=== PATIENT | male | born 1960 | race Caucasian/White ===

== ENCOUNTER → 2019-12-10 10:42 | Outpatient (CLI) | payer OTHER, SELFPAY ==
--- NOTE | ~2019-12-10 | XR_ITS ---
EXAMINATION: XR knee RT min 4V DATE: 12/10/2019 11:08 INDICATION: Right knee pain and swelling TECHNIQUE: Four views of the right knee were obtained. COMPARISON: None. FINDINGS: Alignment is normal. No fracture or osteochondral lesion. There is mild to moderate tricomp artmental osteoarthritis. Chondrocalcinosis of the menisci is noted. No joint effusion/synovitis. So ft tissues are unremarkable. IMPRESSION: 1. Osteoarthritis without acute osseous abnormality. Reviewed, dictated and finalized at location B.
== END ==
PROVIDERS: PCP Internal Medicine; Visit Provider Internal Medicine
DX: M17.11 Unilateral primary osteoarthritis, right knee (principal)
CPT/HCPCS: 73564

== ENCOUNTER 2019-12-14 10:05 | Outpatient (CLI) | payer OTHER, SELFPAY ==
--- NOTE | ~2019-12-14 | US_ITS ---
EXAMINATION: US venous doppler LE RT DATE: 12/14/2019 10:56 INDICATION: Right lower limb pain. TECHNIQUE: Grayscale ultrasound images without and with compression and Doppler ultrasound images of the right lower extremity veins were obtained. COMPARISON: None. FINDINGS: The visualized portions of right common femoral vein, profunda (deep) femoral vein, femoral vein, pop liteal vein, peroneal trunk, posterior tibial veins, peroneal veins, gastrocnemius vein and greater s aphenous vein outflow are patent. 6.6 x 4.0 x 1.4 cm Alejo cyst at the right popliteal fossa. IMPRESSION: 1. No deep venous thrombosis in the right lower limb. 2. Moderate-sized Alejo cyst at the right popliteal fossa. Reviewed, dictated and finalized at location A.
== END 2019-12-14 10:06 | disposition home or self-care (01) ==
LOC: ANHIMG 10:15
PROVIDERS: PCP Internal Medicine; Visit Provider Physician Assistant Surgical
DX: M71.21 Synovial cyst of popliteal space [Baker], right knee (principal); M79.661 Pain in right lower leg
CPT/HCPCS: 93971

== ENCOUNTER → 2020-05-07 08:52 | Outpatient (CLI) | payer OTHER, SELFPAY ==
--- NOTE | ~2020-05-07 | MR_ITS ---
EXAMINATION: MR cervical spine wo con EXAM DATE: 05/07/2020 10:02 INDICATION: Radiculopathy, cervical region neck/right shoulder pain right finger tingling [id number]. TECHNIQUE: Multi-sequential, multiplanar MR images of the cervical spine were obtained without contra st. Axial T2, axial T2 MERGE sequence. Sagittal T1, T2, T2 fat saturation images also obtained. Th ere is no prior study for comparison. FINDINGS: The vertebral bodies are aligned in the AP dimension. There is mild to moderate disc disea se at C5-6 and 6-7, mild at C4-5. The spinal cord signal intensity and intrinsic morphology is normal . Cervicomedullary junction is normal in appearance. There are no suspicious marrow signal abnormalit ies. Paraspinal soft tissue is unremarkable. Level by level evaluation: C2-C3: Disc does not extend beyond the endplate margin. Uncovertebral joint arthropathy: Mild left. Facet joint arthropathy: Mild bilateral. Neural foraminal stenosis: No stenosis. Central canal stenosis: No stenosis. C3-C4: Disc does not extend beyond the endplate margin. Uncovertebral joint arthropathy: Mild bilateral. Facet joint arthropathy: Mild to moderate bilateral. Neural foraminal stenosis: Mild left. Central canal stenosis: No stenosis. C4-C5: Disc does not extend beyond the endplate margin. Uncovertebral joint arthropathy: Minimal bilateral. Facet joint arthropathy: Mild bilateral. Neural foraminal stenosis: No stenosis. Central canal stenosis: No stenosis. C5-C6: There is a mild to moderate diffuse disc bulge asymmetric to the right, extending into neural foramina. Uncovertebral joint arthropathy: Moderate bilateral. Facet joint arthropathy: Mild bilateral. Neural foraminal stenosis: Moderate to severe right, mild to moderate left. Central canal stenosis: Mild. C6-C7: There is a mild diffuse disc bulge. Uncovertebral joint arthropathy: Mild to moderate. Facet joint arthropathy: Mild bilateral. Neural foraminal stenosis: Mild to moderate right. Central canal stenosis: Mild. C7-T1: Disc does not extend beyond the endplate margin. Uncovertebral joint arthropathy: Mild bilateral. Facet joint arthropathy: Mild right. Neural foraminal stenosis: No stenosis. Central canal stenosis: No stenosis. IMPRESSION: C5-6 disc bulge asymmetric to the right extending into the neural foramina contributing t o moderate to severe neural foraminal stenosis at that level. Less spondylosis other levels. Reviewed, dictated and finalized at location B. [employer] IMPRESSION: C5-6 disc bulge asymmetric to the right extending into the neural f oramina contributing to moderate to severe neural foraminal stenosis at that le [place]. Less spondylosis other levels.
== END ==
PROVIDERS: PCP Internal Medicine; Visit Provider Internal Medicine
DX: M50.222 Other cervical disc displacement at C5-C6 level (principal)
CPT/HCPCS: 72141

== ENCOUNTER → 2023-03-15 13:48 | Outpatient (CLI) | payer OTHER, SELFPAY ==
--- NOTE | ~2023-03-15 | CT_ITS ---
EXAMINATION: CT abdomen pelvis wo con DATE: 03/15/2023 14:24 INDICATION: Abdominal pain TECHNIQUE: Computed tomography (CT) of the abdomen and pelvis was performed without intravenous contr ast. Automated exposure control and iterative reconstruction technique were employed. The dose-length product was 1101.81 mGy-cm. COMPARISON: None FINDINGS: Lung bases are clear. Heart size is normal. Atherosclerotic coronary artery calcifications. No perica rdial or pleural effusion. There are few scattered low-attenuation hepatic cysts the largest measurin g 3.1 cm. Gallbladder, spleen, pancreas, bilateral adrenal glands and right kidney are normal. 10 x 5 mm stone at the left renal pelvis. No hydronephrosis or other urolithiasis. Moderate diverticulosis along the descending and sigmoid colon without adjacent inflammatory change to suggest diverticulitis . Small bowel and appendix are normal. Small fat-containing umbilical hernia. Moderate bilateral hip osteoarthritis. Mild to moderate lower lumbar spondylosis. Small centrally lucent lesion with thick s clerotic rim at the anterior right femoral neck which could represent an atypical bone island, enchon droma or bone infarct. IMPRESSION: 1. 10 x 5 mm stone at the left renal pelvis without hydronephrosis. 2. Moderate sigmoid and descending colon predominant diverticulosis. Reviewed, dictated and finalized at location A.
== END ==
PROVIDERS: PCP Internal Medicine; Visit Provider Internal Medicine
DX: R10.9 Unspecified abdominal pain (principal); K57.30 Diverticulosis of large intestine without perforation or abscess without bleeding
CPT/HCPCS: 74176

== ENCOUNTER 2023-09-12 11:30 | Outpatient (CLI) | payer OTHER, SELFPAY ==
--- NOTE | ~2023-09-12 | XR_ITS ---
XR hip LT 2V w AP pelvis 09/12/2023 11:55 Indication: Left hip pain Procedure: 2 views left hip Comparison: No prior studies for comparison. Findings: Moderate osteoarthritis of the left hip. No fracture, subluxation or dislocation. No soft t issue abnormality. No foreign bodies. Impression: 1: Moderate osteoarthritis of the left hip. Reviewed, dictated and finalized at location B. Impression: 1: Moderate osteoarthritis of the left hip.
== END 2023-09-12 11:31 ==
LOC: MICIMG 11:32
PROVIDERS: PCP Internal Medicine; Visit Provider Internal Medicine
DX: M16.12 Unilateral primary osteoarthritis, left hip (principal)
CPT/HCPCS: 73502

== ENCOUNTER 2024-01-10 13:37 | Outpatient (CLI) | payer OTHER, SELFPAY ==
--- NOTE | ~2024-01-10 | XR_ITS ---
EXAMINATION: XR lg joint inject/asp w image DATE: 01/10/2024 14:28 INDICATION: Left hip osteoarthritis TECHNIQUE: A time-out was performed to verify the patient's name, date of , and procedure to b e performed. The procedure including the risks, benefits, and alternatives was discussed with the pat ient. Risks discussed included bleeding and infection. The patient understood the risks and agreed to proceed. The skin overlying the left hip joint was prepped and draped in usual sterile fashion. An esthetic was administered with 1% lidocaine subcutaneously. A 22 G needle was advanced under fluoros copic guidance into the joint. Injection of 1 mL of Omnipaque 240 confirmed intra-articular position of the needle. Subsequently, injectate consisting of 5 mm a 4:1 mixture of 1% lidocaine: 40 mg/mL D epo-Medrol for a total dosage of 40 mg Depo-Medrol was instilled. Washout of contrast was seen confir edmond intra-articular administration. The needle was removed and the entry site was cleaned and dresse d. There were no immediate complications. Fluoroscopy exposure time was 0.1 minutes. The total numbe r of images was 2. Total DAP was 0.436 Gycm^2 FINDINGS: Real-time fluoroscopy demonstrates the needle in the left hip joint. Patient's pain prior t o procedure:5/10. Patient's pain following the procedure: 0/10. IMPRESSION: 1. Successful left hip joint injection of local anesthetic and steroid with decrease in the patient's presenting pain. Reviewed, dictated and finalized at location A. IMPRESSION: 1. Successful left hip joint injection of local anesthetic and steroid with dec rease in the patient's presenting pain.
== END 2024-01-10 13:38 | disposition home or self-care (01) ==
LOC: ANHIMG 13:43
PROVIDERS: PCP Internal Medicine; Visit Provider Orthopaedic Surgery
DX: M16.12 Unilateral primary osteoarthritis, left hip (principal)
CPT/HCPCS: 20610; 77002; J1010; Q9966